=== PATIENT | male | born 1965 | race Hispanic/Latino ===

== ENCOUNTER 2016-12-02 17:42 | Emergency (ER) | payer MEDICAID ==
[2016-12-02 18:16] VITALS: PULSE 61; RESP 16; TEMP 98; O2SAT 98
--- NOTE | 2016-12-02 18:42 | ED PDOC ---
Arrival/HPI - General Chief Complaint: GI Problem Time Seen by Provider: 12/02/16 18:41 Historian: Patient - History of Present Illness Narrative History of Present Illness (Text): 12/02/16 18:41 51 year old male whose past history includes appendectomy in 2014 presents to the emergency department with non-bloody, non-bilious vomiting and watery diarrhea today. He states he recently came back from [facility]. No abdominal pain or other complaints at this time. Time/Duration: 24 hours Symptom Onset: Sudden Symptom Course: Unchanged Modifying Factors (Text): None Past Medical History - Provider Review Nursing Documentation Reviewed: Yes - Travel History If Yes, travel location?: [facility] - Psychiatric Hx Psychophysiologic Disorder: No Hx Substance Use: No - Surgical History Hx Appendectomy: Yes Other/Comment: COLONOSCOPY Family/Social History - Physician Review Nursing Documentation Reviewed: Yes Family/Social History: Unknown Family HX Smoking Status: Never Smoked Hx Alcohol Use: No Hx Substance Use: No Allergies/Home Meds Allergies/Adverse Reactions: Allergies No Known Allergies Allergy (Verified 12/02/16 18:11) Review of Systems - Physician Review All systems were reviewed & negative as marked: Yes Physical Exam - Physical Exam Narrative Physical Exam (Text): - Review of Systems Constitutional: Normal. absent: Fatigue, Weight Change, Fevers Eyes: Normal ENT: Normal Respiratory: Normal absent: SOB, Cough, Sputum Cardiovascular: Normal absent: Chest pain, Palpitations, Syncope Gastrointestinal: Vomiting, Diarrhea absent: Abdominal pain Genitourinary: Normal. absent: Dysuria, Frequency, Hematuria Musculoskeletal: Normal. absent: Arthralgias, Back Pain, Neck Pain Skin: Normal Neurological: Normal absent: Focal Weakness Endocrine: Normal Hemo/Lymphatic: Normal Psychiatric: Normal - Physical exam Patient appears age appropriate, speaking full sentences without difficulty - Systems Exam Head: Present: Atraumatic, Normocephalic Pupils: Present: PERRL Extraocular Muscles: Present: EOMI Conjunctiva: Present: Normal Mouth: Present: Moist Mucous Membranes Neck: Present: Normal Range of Motion. No: MIDLINE TENDERNESS, Paraspinal Tenderness Respiratory/Chest: Present: Clear to Auscultation, Good Air Exchange. No: Respiratory Distress, Accessory Muscle Use, Tachypneic Cardiovascular: Present: Regular Rate and Rhythm, Normal S1, S2, Peripheral Pulses Present. No: Murmurs Abdomen: Present: Normal Bowel Sounds, No: Tenderness, Peritoneal Signs, Rebound, Guarding, Distention Back: Present: Normal Inspection. No: Midline Tenderness, Paraspinal Tenderness Upper Extremity: Present: Normal Inspection. No: Cyanosis, Edema Lower Extremity: Present: Normal Inspection. No: Edema Neurological: Present: GCS=15, Speech Normal, cranial nerves II through XII fully intact with no cerebellar abnormality, neuro-sensory fully intact. No focal neurological deficits. Skin: Present: Warm, Dry, Normal Color. No: Rashes Lymphatic: Present: OX3, NI, NC Psychiatric: Present: Alert, Oriented x 3, Normal Insight, Normal Concentration Vital Signs Reviewed: Yes Vital Signs Temp Pulse Resp BP Pulse Ox 12/02/16 18:12 98.0 F 61 16 123/78 98 Temperature: Afebrile Blood Pressure: Normal Pulse: Regular Respiratory Rate: Normal Appearance: Positive for: Well-Appearing, Non-Toxic, Comfortable Pain Distress: None Mental Status: Positive for: Alert and Oriented X 3 Medical Decision Making ED Course and Treatment: Impression: 51 year old male whose past history includes appendectomy in 2014 presents to the emergency department with non-bloody, non-bilious vomiting and watery diarrhea today. On physical exam, patient has no acute findings. Differential Diagnosis include but are not limited to: Dehydration versus gastroenteritis Plan: -- Toradol, Zofran, Pepcid -- IV fluids -- Labs -- Reassess and disposition Progress Notes: 12/02/16 19:40 Patient's T bili is 2.0. Patient has no complaints of abdominal discomfort. No right upper quadrant pain and tenderness to palpation, negative Richardson sign. Patient instructed to follow-up with his primary physician for further workup. On reevaluation, patient reports that he feels much better and would like to be discharged home. Patient's repeat abdominal exam is soft, nontender, non distended with positive bowel sounds in all 4 quadrants and no peritoneal signs. Patient is tolerating PO without any difficulty. Pt states he understands to return to the ER right away for new or worsening symptoms or for inability to f/u with PMD or specialist as instructed. Patient states that he fully agrees with and understands discharge instructions. States that he agrees with the plan and disposition. Verbalized and repeated discharge instructions and plan. I have given the patient opportunity to ask any additional questions. - Lab Interpretations Lab Results: 12/02/16 19:12 12/02/16 19:12 Lab Results 12/02/16 19:12: Sodium 140, Potassium 3.7, Chloride 105, Carbon Dioxide 25, Anion Gap 14, BUN 15, Creatinine 0.8, Est GFR ( Amer) > 60, Est GFR (Non- Af Amer) > 60, Random Glucose 102, Calcium 9.4, Total Bilirubin 2.0 H, AST 37, ALT 60 H, Alkaline Phosphatase 121, Total Protein 8.2, Albumin 4.4, Globulin 3.8 , Albumin/Globulin Ratio 1.2, Lipase 57 12/02/16 19:12: WBC 8.8, RBC 4.51, Hgb 14.1, Hct 40.4 L, MCV 89.6, MCH 31.3, MCHC 34.9, RDW 15.0 H, Plt Count 176, MPV 11.3 H, Gran % 79.2 H, Lymph % (Auto) 9.1 L, [place] % (Auto) 5.5, Eos % (Auto) 6.0 H, Baso % (Auto) 0.2, Gran # 6.96 H, Lymph # 0.8 L, [place] # 0.5, Eos # 0.5, Baso # 0.02 - Medication Orders Current Medication Orders: Sodium Chloride (Sodium Chloride 0.9%) 2,000 mls @ 1,000 mls/hr IV .Q2H STA Stop: 12/02/16 20:50 Last Admin: 12/02/16 19:24 Dose: 1,000 mls/hr Discontinued Medications Famotidine (Pepcid 20mg/50ml Premix) 20 mg in 50 mls @ 100 mls/hr IV STAT STA Stop: 12/02/16 19:20 Last Admin: 12/02/16 19:24 Dose: 100 mls/hr Ketorolac Tromethamine (Toradol) 15 mg IVP STAT STA Stop: 12/02/16 18:52 Last Admin: 12/02/16 19:24 Dose: 15 mg Ondansetron HCl (Zofran Inj) 4 mg IVP STAT STA Stop: 12/02/16 18:52 Last Admin: 12/02/16 19:25 Dose: 4 mg - Scribe Statement The provider has reviewed the documentation as recorded by the Jordin Rader Provider Scribe Attestation: All medical record entries made by the Jordin were at my direction and personally dictated by me. I have reviewed the chart and agree that the record accurately reflects my personal performance of the history, physical exam, medical decision making, and the department course for this patient. I have also personally directed, reviewed, and agree with the discharge instructions and disposition. Disposition/Present on Arrival - Present on Arrival Any Indicators Present on Arrival: No History of DVT/PE: No History of Uncontrolled Diabetes: No Urinary Catheter: No History of Decub. Ulcer: No History Surgical Site Infection Following: None - Disposition Have Diagnosis and Disposition been Completed?: Yes Diagnosis: Nausea vomiting and diarrhea Disposition: HOME/ ROUTINE Disposition Time: 19:44 Patient Plan: Discharge Patient Problems: Current Active Problems Problem Status Onset Nausea vomiting and diarrhea Acute Condition: GOOD Discharge Instructions (ExitCare): Gastroenteritis (ED), Acute Nausea and Vomiting (ED), Acute Diarrhea (ED), Abdominal Pain (ED) Additional Instructions: PLEASE RETURN TO THE EMERGENCY DEPARTMENT FOR NEW OR WORSENING SYMPTOMS. RETURN RIGHT AWAY IF YOU CANNOT FOLLOW UP WITH YOUR PRIMARY CARE DOCTOR, CLINIC, OR SPECIALIST IN 1-2 DAYS. Prescriptions: Famotidine [Pepcid] 20 mg PO BID #14 tab Ondansetron [Zofran Odt] 4 mg PO Q6 PRN #14 odt PRN Reason: Nausea/Vomiting Referrals: Deloris Otero DO [Primary Care Provider] - Follow up with primary Forms: WORK NOTE
[2016-12-02] MEDS ORDERED: Sodium Chloride 0.9% 2,000 ML IV STA (18:51)
[2016-12-02] MEDS ORDERED: Famotidine 20mg/50ml 20 MG/50 ML BAG IV STA (18:51)
[2016-12-02 19:17] LABS: ADD MANUAL DIFF? NO
[2016-12-02 19:20] LABS: BASO # 0.02 K/mm3 (0.0-2.0); BASO % 0.2 % (0.0-3.0); EOS # 0.5 (0.0-0.7); GRAN # 6.96 (1.4-6.5); GRAN % 79.2 % (50.0-68.0); HEMATOCRIT 40.4 % (42.0-52.0); LYMPH # 0.8 (1.2-3.4); LYMPH % 9.1 % (22.0-35.0); MEAN CELL VOLUME 89.6 fL (80.0-105.0); MEAN CORPUSCULAR HEMOGLOBIN 31.3 pg (25.0-35.0); MEAN CORPUSCULAR HGB CONC 34.9 g/dl (31.0-37.0); MEAN PLATELET VOLUME 11.3 fl (7.0-11.0); MONO # 0.5 (0.1-0.6); MONO % 5.5 % (1.0-6.0); PLATELET COUNT 176 10^3/uL (120.0-450.0); WHITE BLOOD COUNT 8.8 10^3/ul (4.5-11.0)
[2016-12-02 19:31] LABS: ALB/GLOB RATIO 1.2 (1.1-1.8); ALKALINE PHOSPHATASE 121 U/L (38-133); ALT/SGPT 60 U/L (7-56); AST/SGOT 37 U/L (15-59); BLOOD UREA NITROGEN 15 mg/dL (7-21); CALCIUM 9.4 mg/dL (8.4-10.5); CARBON DIOXIDE 25 mmol/L (21-33); CHLORIDE 105 mmol/L (98-107); GFR AFRICAN-AMERICAN > 60; GLUCOSE,RANDOM 102 mg/dL (70-110); LIPASE 57 U/L (23-300); POTASSIUM 3.7 mmol/L (3.6-5.0); SODIUM 140 mmol/L (132-148); TOTAL PROTEIN 8.2 g/dL (5.8-8.3)
[2016-12-02 19:37] LABS: INR 1.02 (0.93-1.08); PARTIAL THROMBOPLASTIN TIME 24.9 Seconds (23.7-30.8)
[2016-12-02 20:32] VITALS: BP 125/67
== END 2016-12-02 20:33 | disposition home or self-care (01) ==
LOC: ED 17:42
DX: R11.2 Nausea with vomiting, unspecified (principal); R19.7 Diarrhea, unspecified
CPT/HCPCS: 80053; 83690; 85025; 85610; 85730; 96365; 96375; 99283; J1885; J2405; J7040